=== PATIENT | female | born 1950 | race Caucasian/White ===

== ENCOUNTER → 2017-07-30 | Outpatient (CLI) | payer MEDICARE ==
--- NOTE | 2017-07-30 11:20 | Diagnostic Imaging Report ---
EXAM: DXA BONE DENSITY INDICATIONS: OSTEOPORSIS SCREENING COMPARISON: None. FINDINGS: Proximal left femur bone mineral density (BMD) (g/cm2):0.8 Femur T-score (standard deviation relative to young adult mean BMD): -1.2 Femur Z-score (standard deviation relative to age-matched control group):0.1 Lumbar bone mineral density (BMD) (g/cm2):0.98 Lumbar T-score (standard deviation relative to young adult mean BMD): -0.6 Lumbar Z-score (standard deviation relative to age-matched control group):1.2 Change since prior exam (%): Femur:Not applicable. Spine:Not applicable. Change since oldest prior exam (%): Femur:Not applicable. Spine:Not applicable. CONCLUSION: Bone mineral density is classified as osteopenia/low bone mass as evidenced by bone mineral density of the left hip. Fracture risk is increased. World Health Organization Classification: *The Z-score is provided for informational purposes. The T-score is preferable for clinical decisions. When comparing exams, a change of >4% is considered statistically significant. SUGGESTED RECOMMENDATIONS: Normal \T\ Osteopenia:Consideration should be given to use of calcium supplementation, daily multiple vitamins and adequate exercise, as preventive measures against osteoporosis, if clinically indicated. Osteoporosis \T\ Severe Osteoporosis:In addition to the above, consideration should be given to medical therapy against osteoporosis, if clinically indicated. Dictated by: Rory Michelle M.D. on 07/30/2017 at 11:20 Electronically approved by: Rory Michelle M.D. on 07/30/2017 at 11:20
== END ==
LOC: DX 09:43
PROVIDERS: ATTEND Family Medicine
DX: Z13.820 Encounter for screening for osteoporosis (principal)
CPT/HCPCS: 77080

== ENCOUNTER 2020-06-26 10:29 | Emergency (ER) | payer MEDICARE, OTHER ==
[~2020-06-26] VITALS: Ht 162.6 cm; Wt 46.3 kg
[2020-06-26] MEDS ORDERED: HYDROCODONE/APAP 10MG-325MG TAB PO NR (11:30)
[2020-06-26 17:00] VITALS: BP 136/74
== END 2020-06-26 15:20 | disposition home or self-care (01) ==
LOC: ER 12:00
DX: S52.571A Other intraarticular fracture of lower end of right radius, initial encounter for closed fracture (principal); S52.611A Displaced fracture of right ulna styloid process, initial encounter for closed fracture; W00.0XXA Fall on same level due to ice and snow, initial encounter; Y93.01 Activity, walking, marching and hiking; Y92.008 Other place in unspecified non-institutional (private) residence as the place of occurrence of the external cause; E03.9 Hypothyroidism, unspecified
CPT/HCPCS: 99283

== ENCOUNTER → 2023-11-12 | Outpatient (REF) | payer MEDICARE | LOC: DX 10:45 | PROVIDERS: ATTEND Neurological Surgery | DX: M85.88 Other specified disorders of bone density and structure, other site (principal) | CPT/HCPCS: 77080 ==